=== PATIENT | male | born 1975 | race Caucasian/White ===

== ENCOUNTER 2018-03-07 10:48 | Outpatient (CLI) | payer BC ==
--- NOTE | 2018-03-07 12:52 | RAD ---
CERVICAL SPINE SERIES FIVE VIEWS INCLUDING FLEXION AND EXTENSION: History: Neck pain, numbness in left hand. FINDINGS: The vertebral bodies are normal in height. Minimal disc narrowing is seen at C5-6 with slightly restr icted motion and flexion at this level. I do not see any anterior retrolisthesis in flexion or extens ion. No soft tissue swelling. IMPRESSION: Minimal disc narrowing at C5-6 level. POS: RUI
--- NOTE | 2018-03-07 12:59 | RAD ---
THORACIC SPINE 3 VIEWS: HISTORY: Pain. COMPARISON: None. FINDINGS: No fracture. No malalignment. Paraspinal soft tissues unremarkable. Mild spondylosis midthoracic spine. IMPRESSION: No acute fracture or malalignment. Mild spondylosis. POS: RUI
== END 2018-03-07 10:49 | disposition home or self-care (01) ==
LOC: BICRAD 10:48
PROVIDERS: ATTEND Nurse Practitioner Family
DX: M54.2 Cervicalgia (principal); M54.6 Pain in thoracic spine; M47.894 Other spondylosis, thoracic region; M50.322 Other cervical disc degeneration at C5-C6 level
CPT/HCPCS: 72050; 72072